=== PATIENT | male | born 1945 | race Caucasian/White ===

== ENCOUNTER 2022-07-15 11:08 | Outpatient (CLI) | payer MEDICARE, BC ==
[2022-07-15] MEDS ORDERED: Magnevist 469MG/ML 20 ML VIAL ONE (11:49)
== END 2022-07-15 11:09 | disposition home or self-care (01) ==
LOC: MRI 11:08
PROVIDERS: ATTEND Radiology Radiation Oncology
DX: D35.2 Benign neoplasm of pituitary gland (principal); Z98.890 Other specified postprocedural states
CPT/HCPCS: 70553; 82565